=== PATIENT | female | born 2000 | race African-American/Black ===

== ENCOUNTER 2020-03-27 11:44 | Emergency (ER) | payer MEDICAID ==
[~2020-03-27] VITALS: Ht 157.5 cm; Wt 48.1 kg
--- NOTE | 2020-03-27 11:45 | NUR ---
PT BIB SELF C/O ON AND OFF CHEST PAIN FOR 2 DAYS NON RADIATING. PT IS AAOX4, NOT IN RESPIRATORY DISTRESS, HOOKED TO GREENHOUSE [employer], KEPT RESTED AND COMFORTABLE. WILL CONTINUE TO MONITOR.
--- NOTE | 2020-03-27 12:05 | NUR ---
SEEN AND EXAMINED BY .
--- NOTE | 2020-03-27 12:20 | NUR ---
ER PHLEB AT BEDSIDE FOR BLOOD DRAW.
[2020-03-27 12:25] LABS: BASOPHILS % (AUTO) 0.1 % (0.0-2.0); HEMATOCRIT 39 % (33-45); HEMOGLOBIN 12.3 g/dL (11.5-14.8); LYMPHOCYTES # (AUTO) 1.1 /CMM (0.8-4.8); LYMPHOCYTES % (AUTO) 16.9 % (20.0-44.0); MEAN CORPUSCULAR HGB CONC 32 g/dl (31.0-36.0); MEAN CORPUSCULAR VOLUME 81 fL (82-100); MONOCYTES # (AUTO) 0.3 /CMM (0.1-1.30); MONOCYTES % (AUTO) 4.3 % (2.0-12.0); NEUTROPHILS # (AUTO) 5.2 /CMM (1.8-8.9); NEUTROPHILS % (AUTO) 76.7 % (43.0-81.0); PLATELET COUNT (AUTO) 205 /CMM (150-450); RED BLOOD CELL COUNT(AUTO) 4.78 MIL/uL (4.0-5.2); WHITE BLOOD COUNT (AUTO) 6.7 K/uL (4.3-11.0)
[2020-03-27 12:41] LABS: CALCIUM, SERUM 8.3 mg/dL (8.5-10.1); CREATININE 0.5 mg/dL (0.6-1.3); POTASSIUM 3.6 mmol/L (3.5-5.1)
[2020-03-27 12:53] LABS: ALBUMIN 3.1 g/dL (3.4-5.0); BILIRUBIN,TOTAL 0.3 mg/dL (0.2-1.0)
--- NOTE | 2020-03-27 13:08 | NUR ---
Patient discharged to home in stable condition. Written and verbal after care instructions given. Patient verbalizes understanding of instruction.
[2020-03-27 13:09] VITALS: BP 124/88
== END 2020-03-27 13:10 | disposition home or self-care (01) ==
LOC: ER 11:48
DX: R07.89 Other chest pain (principal); R09.1 Pleurisy; Z20.828 Contact with and (suspected) exposure to other viral communicable diseases
CPT/HCPCS: 36415; 71045; 80053; 84703; 85025; 93005; 99285; C9803; U0003

== ENCOUNTER 2020-05-14 06:14 | Emergency (ER) | payer MEDICAID ==
[~2020-05-14] VITALS: Ht 157.5 cm; Wt 48.1 kg
[2020-05-14 06:14] VITALS: BP 124/88
[2020-05-14] MEDS ORDERED: diphenhydrAMINE HCL 50 MG CAPSULE ONE (06:25)
[2020-05-14] MEDS ORDERED: predniSONE 10 MG TABLET ONE (06:26)
[2020-05-14] MEDS ORDERED: predniSONE 20 MG TABLET ONE (06:26)
[2020-05-14] MEDS ORDERED: diphenhydrAMINE HCL 25 MG CAPSULE PO ONE (06:30)
[2020-05-14] MEDS ORDERED: predniSONE 50 MG TABLET PO ONE (06:30)
== END 2020-05-14 07:23 | disposition home or self-care (01) ==
LOC: ER 06:16
DX: H02.844 Edema of left upper eyelid (principal); H02.841 Edema of right upper eyelid; R09.89 Other specified symptoms and signs involving the circulatory and respiratory systems; F41.9 Anxiety disorder, unspecified
CPT/HCPCS: 99283; J7512 ×2; Q0163

== ENCOUNTER 2021-05-05 17:58 | Emergency (ER) | payer MEDICAID ==
[~2021-05-05] VITALS: Ht 160 cm; Wt 45.4 kg
[2021-05-05 18:18] VITALS: BP 121/56
--- NOTE | 2021-05-05 18:22 | NUR ---
BIBS for c/o right arm pit pain, left breast pain. rates pain 4/10. Will continue to monitor the patient.
[2021-05-05] MEDS ORDERED: CEPH500T PO (18:55)
--- NOTE | 2021-05-05 19:22 | NUR ---
Patient discharged to home in stable condition. Written and verbal after care instructions given. Patient verbalizes understanding of instruction.
== END 2021-05-05 19:23 | disposition home or self-care (01) ==
LOC: ER 18:05
DX: S20.02XA Contusion of left breast, initial encounter (principal); F41.9 Anxiety disorder, unspecified; Z79.899 Other long term (current) drug therapy; X58.XXXA Exposure to other specified factors, initial encounter; Y93.89 Activity, other specified; Y92.89 Other specified places as the place of occurrence of the external cause; Y99.8 Other external cause status

== ENCOUNTER 2024-06-10 13:25 | Emergency (ER) | payer MEDICAID, OTHER ==
[~2024-06-10] VITALS: Ht 157.5 cm; Wt 49.0 kg
[~2024-06-10 13:25] MED LIST: CEPH500T PO
[2024-06-10] MEDS ORDERED: diphenhydrAMINE HCL 50 MG/ML VIAL ONE (13:53)
[2024-06-10] MEDS ORDERED: METOCLOPRAMIDE HCL 10 MG/2 ML VIAL ONE (13:54)
[2024-06-10] MEDS ORDERED: KETOROLAC TROMETHAMINE 15 MG/ML VIAL ONE (13:54)
[2024-06-10] MEDS: IV NS 0.9% 1,000 ML BAG IV ONE (13:58)
[2024-06-10] MEDS: diphenhydrAMINE HCL 50 MG/ML VIAL IV ONE (14:03)
[2024-06-10] MEDS: METOCLOPRAMIDE HCL 10 MG/2 ML VIAL IV ONE (14:03)
[2024-06-10] MEDS: KETOROLAC TROMETHAMINE 15 MG/ML VIAL IV ONE (14:06)
[2024-06-10] MEDS ORDERED: IBUP-1955 PO (14:52)
[2024-06-10 15:02] VITALS: BP 129/74; TEMP 98.3; O2SAT 100
== END 2024-06-10 15:02 | disposition home or self-care (01) ==
LOC: ER 13:36
DX: R51.9 Headache, unspecified (principal); F41.9 Anxiety disorder, unspecified
CPT/HCPCS: 99284; 96374; 96375; 96361; J1200; J2765; J7030; J1885